=== PATIENT | female | born 1980 | race Caucasian/White ===

== ENCOUNTER 2020-08-29 12:22 | Emergency (ER) | payer OTHER ==
[~2020-08-29] VITALS: Ht 172.7 cm; Wt 81.7 kg
[2020-08-29] MEDS ORDERED: HYDROCODON-ACE1 EA10 PO (16:21)
== END 2020-08-29 16:42 | disposition home or self-care (01) ==
LOC: ED 12:22
DX: S39.012A Strain of muscle, fascia and tendon of lower back, initial encounter (principal); X58.XXXA Exposure to other specified factors, initial encounter; Y99.0 Civilian activity done for income or pay; F17.200 Nicotine dependence, unspecified, uncomplicated
CPT/HCPCS: 81001; 96372; 99283; 99406; J1100; J1885

== ENCOUNTER 2020-11-20 10:29 | Emergency (ER) | payer OTHER ==
[~2020-11-20] VITALS: Ht 172.7 cm; Wt 85.7 kg
[~2020-11-20 10:29] MED LIST: HYDROCODON-ACE1 EA10 PO
[2020-11-20] MEDS ORDERED: PREDNISONE20 MG PO (13:02)
[2020-11-20] MEDS ORDERED: CYCLOBENZAPRINE10 MG PO (13:02)
== END 2020-11-20 13:15 | disposition home or self-care (01) ==
LOC: ED 10:29
DX: S39.012A Strain of muscle, fascia and tendon of lower back, initial encounter (principal); M54.42 Lumbago with sciatica, left side; X50.0XXA Overexertion from strenuous movement or load, initial encounter; Y93.89 Activity, other specified; Y99.0 Civilian activity done for income or pay; F17.200 Nicotine dependence, unspecified, uncomplicated
CPT/HCPCS: 72100; 99283-25; J7512